=== PATIENT | female | born 1980 | race Caucasian/White ===

== ENCOUNTER 2017-12-09 21:10 | Inpatient (IN) | payer OTHER ==
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
[2017-12-09] MEDS ORDERED: ZIPRASIDONE 20 MG VIAL IM STA (23:42)
[2017-12-09] MEDS ORDERED: LORazepam 2 MG/ML INJ IM STA (23:42)
[2017-12-10] MEDS ORDERED: MAGNESIUM HYDROXIDE 2,400 MG/10 ML CUP PO PRN (00:49)
[2017-12-10] MEDS ORDERED: ZIPRASIDONE 20 MG VIAL IM PRN (00:49)
[2017-12-10] MEDS ORDERED: LORazepam 1 MG TAB PO PRN (00:49)
[2017-12-10] MEDS ORDERED: ACETAMINOPHEN TAB 325 MG TAB PO PRN (00:49)
[2017-12-10] MEDS ORDERED: MAG HYDROX/AL HYDROX/SIMETH 30 ML CUP PO PRN (00:49)
--- NOTE | 2017-12-10 06:14 | P.PN ---
Progress Note - Text Progress Note Date: 12/10/17 Attempted to see patient for H and P. Patient shook head no when asked if she could talk to the doctor, immediately fell back asleep. Still very sedated after receiving geodon and ativan last night, unable to preform meaningful exam at this time.
[2017-12-10] MEDS: NICOTINE 7MG/24HR PATCH TRANSDERM SCH (09:53)
[2017-12-10] MEDS: ARIPiprazole 10 MG TAB PO SCH ×2 (15:55→17:58)
[2017-12-10] MEDS: ESCITALOPRAM 10 MG TAB PO SCH ×2 (15:55→17:58)
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
[2017-12-11] MEDS: ARIPiprazole 10 MG TAB PO SCH (11:10)
[2017-12-11] MEDS: ESCITALOPRAM 10 MG TAB PO SCH (11:10)
[2017-12-11] MEDS: NICOTINE 7MG/24HR PATCH TRANSDERM SCH (11:13)
[2017-12-11] MEDS ORDERED: hydrOXYzine PAMOATE 25 MG CAP PO PRN (12:51)
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
[2017-12-12 06:50] VITALS: BP 116/57; PULSE 70; RESP 14; TEMP 98.2
[2017-12-12] MEDS: NICOTINE 7MG/24HR PATCH TRANSDERM SCH (09:07)
[2017-12-12] MEDS: ARIPiprazole 10 MG TAB PO SCH ×2 (09:54→10:15)
--- NOTE | 2017-12-12 12:57 | P.DS ---
Providers Date of admission: 12/10/17 00:15 Expected date of discharge: 12/12/17 Attending physician: Luis Enrique Black Consults: 12/10/17 00:49 Consult Physician Routine Consulting Provider: [facility] Consult Reason/Comments: medical management Do you want consulting provider notified?: Already Contacted Primary care physician: Stated None Hospital Course: Patient had her psychiatric evaluation done by Dr. Irving, had her physical examination and psychosocial evaluation. After psychiatric evaluation Dr. Toth put her on Abilify 10 mg daily and Lexapro 10 mg a day. Patient continued to be quite agitated hostile and try to engage in self abusive behavior by removing the electrical outlets and was placed on one-to-one supervision. I saw her for follow-up examination on 12/11/2017, her diagnosis were reviewed, revised and her Lexapro was discontinued because of her diagnosis and Abilify was continued to manage her psychosis. She settled down and was able to control her anger and frustration and her one-to-one supervision was discontinued. She continued to be cooperative, her psychotic thinking cleared up and did not show any self abusive behavior. She had a deferral appointment today and is signed her consent for treatment. In view of all these it was agreed to discharge her. Condition on discharge this is a white ambulatory female with good hygiene. She is polite and cooperative. She does not show any psychomotor agitation or retardation. Her speech is spontaneous relevant and goal-directed. Her mood is euthymic and affect is appropriate. She continues to deny hallucinations, delusional thinking, suicidal and homicidal ideas. She is well oriented with good memory concentration general knowledge etc. Her insight and judgment have improved quite a bit. 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 Cannabis use disorder severe F 12.20. Borderline personality disorder F 60.3. ALLERGY to amoxicillin and penicillins. Patient was advised and agreed to take her medications as prescribed, not to abuse drugs or alcohol, seek drug and alcohol counseling, seek DBT and learn better coping skills, not to drive or operate machinery if she feels sleepy, to call her psychiatrist or therapist if she gets any thoughts of hurting herself and if she cannot get hold of them to come to the nearest ER. It was suggested to her that she may not need to be on Abilify for more than a week and should discuss this with her outpatient psychiatrist before stopping it. Patient Condition at Discharge: Stable Plan - Discharge Summary New Discharge Prescriptions: New ARIPiprazole [Abilify] 10 mg PO DAILY 30 Days #30 tab Discharge Medication List ARIPiprazole [Abilify] 10 mg PO DAILY 30 Days #30 tab 12/12/17 [Rx] Follow up Appointment(s)/Referral(s): None,Stated [Primary Care Provider] - 1-2 days
== END 2017-12-12 14:56 | disposition home or self-care (01) | DRG 896 ==
LOC: EC 21:10 → 3MHU 12-10 00:15
PROVIDERS: ADMIT Psychiatry & Neurology Psychiatry; ATTEND Psychiatry & Neurology Psychiatry
DX: F15.921 Other stimulant use, unspecified with intoxication delirium (principal); G93.40 Encephalopathy, unspecified; F12.20 Cannabis dependence, uncomplicated; F60.3 Borderline personality disorder; F17.200 Nicotine dependence, unspecified, uncomplicated; F43.10 Post-traumatic stress disorder, unspecified; Z91.5 Personal history of self-harm; W26.0XXA Contact with knife, initial encounter; Z79.899 Other long term (current) drug therapy; Z85.41 Personal history of malignant neoplasm of cervix uteri; Z88.0 Allergy status to penicillin; Z90.710 Acquired absence of both cervix and uterus; Z90.49 Acquired absence of other specified parts of digestive tract; Z91.410 Personal history of adult physical and sexual abuse; Z81.8 Family history of other mental and behavioral disorders
CPT/HCPCS: 82075; 96372; 99285

== ENCOUNTER 2017-12-17 01:27 | Emergency (ER) | payer OTHER ==
[2017-12-17 01:35] VITALS: RESP 18; TEMP 97.1
[2017-12-17] MEDS ORDERED: CEPHALEXIN 500MG STARTER PACK 4 CAP BTL PO STA (03:05)
--- NOTE | 2017-12-17 03:07 | ED ---
General Adult HPI - General Chief complaint: Extremity Injury, Lower Stated complaint: foot infection Time Seen by Provider: 12/17/17 02:23 Source: patient Mode of arrival: ambulatory Limitations: no limitations - History of Present Illness Initial comments: 37-year-old female patient presents to the emergency department today for evaluation of left great toe swelling and pain. Patient states it is been bothering her for the last week. Patient states that she has had. Drainage from the area beneath her toe nail and along the edges of her toenail. Patient states that she does wear tight she works on her feet all day. Patient states that the nail is lifting away from the nailbed. Patient states she has had similar infections in the past. She denies any fevers or chills with this. Denies any nausea or vomiting. Denies any numbness or tingling to the foot. Patient denies any recent rash, shortness breath, chest pain, abdominal pain, nausea, vomiting, diarrhea, constipation, back pain, dizziness, weakness, hematuria, dysuria, urinary urgency, urinary frequency, headache, visual changes , or any other complaints. - Related Data Previous Rx's Medication Instructions Recorded ARIPiprazole [Abilify] 10 mg PO DAILY 30 Days #30 tab 12/12/17 Cephalexin [Keflex] 500 mg PO Q6H #28 cap 12/17/17 Ibuprofen [Motrin] 600 mg PO Q8HR PRN #30 tab 12/17/17 Allergies Allergy/AdvReac Type Severity Reaction Status Date / Time amoxicillin Allergy Unknown Verified 12/17/17 01:31 Childhood Penicillins Allergy Unknown Verified 12/17/17 01:31 Childhood Review of Systems ROS Statement: Those systems with pertinent positive or pertinent negative responses have been documented in the HPI. ROS Other: All systems not noted in ROS Statement are negative. Past Medical History Past Medical History: No Reported History Additional Past Medical History / Comment(s): cervical cancer, History of Any Multi-Drug Resistant Organisms: None Reported Past Surgical History: Cholecystectomy, Hysterectomy Additional Past Surgical History / Comment(s): bilat carpal tunnel surgery, d/c , loop procedure, Past Psychological History: Anxiety, Depression, PTSD Smoking Status: Current every day smoker Past Alcohol Use History: Occasional Past Drug Use History: None Reported - Past Family History Mother Family Medical History: Cancer (Unknown), Coronary Artery Disease (CAD), Diabetes Mellitus General Exam Limitations: no limitations General appearance: alert, in no apparent distress, other (Social well-developed , well-nourished adult female patient in no acute distress. Vital signs upon presentation her doctor 97.1F, pulse 85, respirations 18, blood pressure 135/76 , pulse ox 100% on room air.) Eye exam: Present: normal appearance, PERRL, EOMI. Absent: scleral icterus, conjunctival injection, periorbital swelling ENT exam: Present: normal exam, normal oropharynx, mucous membranes moist Respiratory exam: Present: normal lung sounds bilaterally. Absent: respiratory distress, wheezes, rales, rhonchi, stridor Cardiovascular Exam: Present: regular rate, normal rhythm, normal heart sounds. Absent: systolic murmur, diastolic murmur, rubs, gallop, clicks Extremities exam: Present: full ROM, tenderness (Tenderness around the great toe ), normal capillary refill, other (There is erythema and swelling at the proximal nail fold of the left great toe, nail is thickened and yellowed. Nail is removing away from the nailbed. There is no current drainage.). Absent: normal inspection, pedal edema, joint swelling, calf tenderness Neurological exam: Present: alert, oriented X3, CN II-XII intact Psychiatric exam: Present: normal affect, normal mood Skin exam: Present: warm, dry, intact, normal color. Absent: rash Course Vital Signs 12/17/17 12/17/17 01:31 03:33 Temperature 97.1 F L 97.1 F L Pulse Rate 85 80 Respiratory 18 18 Rate Blood Pressure 135/76 121/78 O2 Sat by Pulse 100 100 Oximetry Medical Decision Making - Medical Decision Making 37-year-old female patient presents to the emergency department today for evaluation of left great toe infection. Physical examination did reveal swelling and erythema at the proximal nail fold, there is a thickened and yellowed nail that is pulling away from the nailbed. No evidence of abscess. Patient states this is Coco draining. She is instructed to do warm soaks 3-4 times daily. She is instructed to take antibiotics and anti-inflammatory pain medication. She is instructed to follow-up with the media associate for further evaluation. Return parameters discussed in detail. She verbalizes understanding and agrees with this plan. Disposition Clinical Impression: Paronychia of great toe, left Disposition: HOME SELF-CARE Condition: Good Instructions: Paronychia (ED), Warm Compress or Soak (ED) Additional Instructions: Do warm soaks of the foot 3-4 times daily. Follow-up with media associate. Complete antibiotic prescription in full. Return here immediately for any new, worsening, or concerning symptoms. Prescriptions: Cephalexin [Keflex] 500 mg PO Q6H #28 cap Ibuprofen [Motrin] 600 mg PO Q8HR PRN #30 tab PRN Reason: Pain Is patient prescribed a controlled substance at d/c from ED?: No Referrals: None,Stated [Primary Care Provider] - 1-2 days Triston Sarabia DPM [STAFF PHYSICIAN] - 1-2 days Time of Disposition: 03:07
[2017-12-17 03:35] VITALS: BP 121/78; PULSE 80
== END 2017-12-17 03:35 | disposition home or self-care (01) ==
LOC: EC 01:27
DX: L03.032 Cellulitis of left toe (principal); F17.200 Nicotine dependence, unspecified, uncomplicated; Z88.0 Allergy status to penicillin; Z85.41 Personal history of malignant neoplasm of cervix uteri
CPT/HCPCS: 99283

== ENCOUNTER → 2018-01-12 | Outpatient (CLI) | payer OTHER | END | disposition home or self-care (01) | LOC: LABWHC1 14:06 | PROVIDERS: ATTEND Family Medicine | DX: Z13.88 Encounter for screening for disorder due to exposure to contaminants (principal) | CPT/HCPCS: 36415; 83655 ==

== ENCOUNTER 2018-01-28 15:27 | Emergency (ER) | payer OTHER ==
--- NOTE | 2018-01-28 16:47 | ED ---
General Adult HPI - General Chief complaint: Extremity Problem,Nontraumatic Stated complaint: ankle & hand swelling/back pain Time Seen by Provider: 01/28/18 16:08 Source: patient, RN notes reviewed, old records reviewed Mode of arrival: ambulatory Limitations: no limitations - History of Present Illness Initial comments: This is a 29-year-old female the ER for evaluation of upper and lower extremity edema. Patient has recent history of drug abuse, history of alcohol use history of opiate abuse. Patient started Medication which isn't injection and since then has been having some diffuse edema. No travel history no sick contacts no chest pain or shortness of breath. Patient denies any other new medications, denies drugs or alcohol - Related Data Previous Rx's Medication Instructions Recorded ARIPiprazole [Abilify] 10 mg PO DAILY 30 Days #30 tab 12/12/17 Cephalexin [Keflex] 500 mg PO Q6H #28 cap 12/17/17 Ibuprofen [Motrin] 600 mg PO Q8HR PRN #30 tab 12/17/17 Furosemide [Lasix] 40 mg PO BID #10 tablet 01/28/18 Allergies Allergy/AdvReac Type Severity Reaction Status Date / Time amoxicillin Allergy Unknown Verified 01/28/18 15:36 Childhood Penicillins Allergy Unknown Verified 01/28/18 15:36 Childhood Review of Systems ROS Statement: Those systems with pertinent positive or pertinent negative responses have been documented in the HPI. ROS Other: All systems not noted in ROS Statement are negative. Past Medical History Past Medical History: No Reported History Additional Past Medical History / Comment(s): cervical cancer, History of Any Multi-Drug Resistant Organisms: None Reported Past Surgical History: Cholecystectomy, Hysterectomy Additional Past Surgical History / Comment(s): bilat carpal tunnel surgery, d/c , loop procedure, Past Psychological History: Anxiety, Depression, PTSD Smoking Status: Current every day smoker Past Alcohol Use History: None Reported Past Drug Use History: None Reported - Past Family History Mother Family Medical History: Cancer (Unknown), Coronary Artery Disease (CAD), Diabetes Mellitus General Exam - General Exam Comments Initial Comments: Diffuse leg edema, and edema, soft tissue edema Limitations: no limitations General appearance: alert, in no apparent distress Head exam: Present: atraumatic, normocephalic, normal inspection Eye exam: Present: normal appearance, PERRL, EOMI. Absent: scleral icterus, conjunctival injection, periorbital swelling ENT exam: Present: normal exam, mucous membranes moist Neck exam: Present: normal inspection. Absent: tenderness, meningismus, lymphadenopathy Respiratory exam: Present: normal lung sounds bilaterally. Absent: respiratory distress, wheezes, rales, rhonchi, stridor Cardiovascular Exam: Present: regular rate, normal rhythm, normal heart sounds. Absent: systolic murmur, diastolic murmur, rubs, gallop, clicks GI/Abdominal exam: Present: soft, normal bowel sounds. Absent: distended, tenderness, guarding, rebound, rigid Extremities exam: Present: normal inspection, full ROM, normal capillary refill. Absent: tenderness, pedal edema, joint swelling, calf tenderness Back exam: Present: normal inspection Neurological exam: Present: alert, oriented X3, CN II-XII intact Psychiatric exam: Present: normal affect, normal mood Skin exam: Present: warm, dry, intact, normal color. Absent: rash Course Vital Signs 01/28/18 01/28/18 15:34 17:13 Temperature 98.7 F Pulse Rate 90 78 Respiratory 20 18 Rate Blood Pressure 110/67 112/77 O2 Sat by Pulse 99 98 Oximetry - Reevaluation(s) Reevaluation #1: 01/28/18 18:36 patient remains without acute distress Medical Decision Making - Medical Decision Making 37 female the ER for evaluation of bilateral lower extremity edema significant body swelling and pain. Patient CT negative labwork normal. Patient will be discharged home with a few days of Lasix. - Lab Data Result diagrams: 01/28/18 17:10 01/28/18 17:10 Lab Results 01/28/18 01/28/18 01/28/18 Range/Units 17:10 17:10 17:10 WBC 5.9 (3.8-10.6) k/uL RBC 3.75 L (3.80-5.40) m/uL Hgb 12.1 (11.4-16.0) gm/dL Hct 36.0 (34.0-46.0) % MCV 95.9 (80.0-100.0) fL MCH 32.2 (25.0-35.0) pg MCHC 33.5 (31.0-37.0) g/dL RDW 13.2 (11.5-15.5) % Plt Count 197 (150-450) k/uL Neutrophils % 61 % Lymphocytes % 29 % Monocytes % 6 % Eosinophils % 2 % Basophils % 1 % Neutrophils # 3.6 (1.3-7.7) k/uL Lymphocytes # 1.7 (1.0-4.8) k/uL Monocytes # 0.4 (0-1.0) k/uL Eosinophils # 0.1 (0-0.7) k/uL Basophils # 0.0 (0-0.2) k/uL PT (9.0-12.0) sec INR (<1.2) APTT (22.0-30.0) sec D-Dimer (<0.60) mg/L FEU Sodium 139 (137-145) mmol/L Potassium 4.2 (3.5-5.1) mmol/L Chloride 108 H (98-107) mmol/L Carbon Dioxide 25 (22-30) mmol/L Anion Gap 6 mmol/L BUN 14 (7-17) mg/dL Creatinine 0.70 (0.52-1.04) mg/dL Est GFR (CKD-EPI)AfAm >90 (>60 ml/min/1.73 sqM) Est GFR (CKD-EPI)NonAf >90 (>60 ml/min/1.73 sqM) Glucose 83 (74-99) mg/dL Calcium 8.8 (8.4-10.2) mg/dL Total Bilirubin 0.2 (0.2-1.3) mg/dL AST 39 H (14-36) U/L ALT 48 (9-52) U/L Alkaline Phosphatase 83 (38-126) U/L Total Creatine Kinase 338 H (30-135) U/L CK-MB (CK-2) 3.3 H* (0.0-2.4) ng/mL CK-MB (CK-2) Rel Index 1.0 NT-Pro-B Natriuret Pep pg/mL Total Protein 5.9 L (6.3-8.2) g/dL Albumin 3.7 (3.5-5.0) g/dL Amylase 40 (30-110) U/L Lipase 141 (23-300) U/L Urine Color Urine Appearance (Clear) Urine pH (5.0-8.0) Ur Specific [place] (1.001-1.035) Urine Protein (Negative) Urine Glucose (UA) (Negative) Urine Ketones (Negative) Urine Blood (Negative) Urine Nitrite (Negative) Urine Bilirubin (Negative) Urine Urobilinogen (<2.0) mg/dL Ur Leukocyte Esterase (Negative) Hepatitis A IgM Ab 01/28/18 01/28/18 01/28/18 Range/Units 17:10 17:10 17:10 WBC (3.8-10.6) k/uL RBC (3.80-5.40) m/uL Hgb (11.4-16.0) gm/dL Hct (34.0-46.0) % MCV (80.0-100.0) fL MCH (25.0-35.0) pg MCHC (31.0-37.0) g/dL RDW (11.5-15.5) % Plt Count (150-450) k/uL Neutrophils % % Lymphocytes % % Monocytes % % Eosinophils % % Basophils % % Neutrophils # (1.3-7.7) k/uL Lymphocytes # (1.0-4.8) k/uL Monocytes # (0-1.0) k/uL Eosinophils # (0-0.7) k/uL Basophils # (0-0.2) k/uL PT 9.5 (9.0-12.0) sec INR 1.0 (<1.2) APTT 21.8 L (22.0-30.0) sec D-Dimer 0.30 (<0.60) mg/L FEU Sodium (137-145) mmol/L Potassium (3.5-5.1) mmol/L Chloride (98-107) mmol/L Carbon Dioxide (22-30) mmol/L Anion Gap mmol/L BUN (7-17) mg/dL Creatinine (0.52-1.04) mg/dL Est GFR (CKD-EPI)AfAm (>60 ml/min/1.73 sqM) Est GFR (CKD-EPI)NonAf (>60 ml/min/1.73 sqM) Glucose (74-99) mg/dL Calcium (8.4-10.2) mg/dL Total Bilirubin (0.2-1.3) mg/dL AST (14-36) U/L ALT (9-52) U/L Alkaline Phosphatase (38-126) U/L Total Creatine Kinase (30-135) U/L CK-MB (CK-2) (0.0-2.4) ng/mL CK-MB (CK-2) Rel Index NT-Pro-B Natriuret Pep 196 pg/mL Total Protein (6.3-8.2) g/dL Albumin (3.5-5.0) g/dL Amylase (30-110) U/L Lipase (23-300) U/L Urine Color Yellow Urine Appearance Clear (Clear) Urine pH 7.0 (5.0-8.0) Ur Specific [place] 1.014 (1.001-1.035) Urine Protein Negative (Negative) Urine Glucose (UA) Negative (Negative) Urine Ketones Negative (Negative) Urine Blood Negative (Negative) Urine Nitrite Negative (Negative) Urine Bilirubin Negative (Negative) Urine Urobilinogen <2.0 (<2.0) mg/dL Ur Leukocyte Esterase Negative (Negative) Hepatitis A IgM Ab 01/28/18 Range/Units 17:16 WBC (3.8-10.6) k/uL RBC (3.80-5.40) m/uL Hgb (11.4-16.0) gm/dL Hct (34.0-46.0) % MCV (80.0-100.0) fL MCH (25.0-35.0) pg MCHC (31.0-37.0) g/dL RDW (11.5-15.5) % Plt Count (150-450) k/uL Neutrophils % % Lymphocytes % % Monocytes % % Eosinophils % % Basophils % % Neutrophils # (1.3-7.7) k/uL Lymphocytes # (1.0-4.8) k/uL Monocytes # (0-1.0) k/uL Eosinophils # (0-0.7) k/uL Basophils # (0-0.2) k/uL PT (9.0-12.0) sec INR (<1.2) APTT (22.0-30.0) sec D-Dimer (<0.60) mg/L FEU Sodium (137-145) mmol/L Potassium (3.5-5.1) mmol/L Chloride (98-107) mmol/L Carbon Dioxide (22-30) mmol/L Anion Gap mmol/L BUN (7-17) mg/dL Creatinine (0.52-1.04) mg/dL Est GFR (CKD-EPI)AfAm (>60 ml/min/1.73 sqM) Est GFR (CKD-EPI)NonAf (>60 ml/min/1.73 sqM) Glucose (74-99) mg/dL Calcium (8.4-10.2) mg/dL Total Bilirubin (0.2-1.3) mg/dL AST (14-36) U/L ALT (9-52) U/L Alkaline Phosphatase (38-126) U/L Total Creatine Kinase (30-135) U/L CK-MB (CK-2) (0.0-2.4) ng/mL CK-MB (CK-2) Rel Index NT-Pro-B Natriuret Pep pg/mL Total Protein (6.3-8.2) g/dL Albumin (3.5-5.0) g/dL Amylase (30-110) U/L Lipase (23-300) U/L Urine Color Urine Appearance (Clear) Urine pH (5.0-8.0) Ur Specific [place] (1.001-1.035) Urine Protein (Negative) Urine Glucose (UA) (Negative) Urine Ketones (Negative) Urine Blood (Negative) Urine Nitrite (Negative) Urine Bilirubin (Negative) Urine Urobilinogen (<2.0) mg/dL Ur Leukocyte Esterase (Negative) Hepatitis A IgM Ab NEGATIVE - Radiology Data Radiology results: report reviewed (CT head and pelvis negative), image reviewed Disposition Clinical Impression: Leg edema, Bilateral leg edema, Medication reaction Disposition: HOME SELF-CARE Condition: Good Instructions: Leg Edema (ED) Prescriptions: Furosemide [Lasix] 40 mg PO BID #10 tablet Is patient prescribed a controlled substance at d/c from ED?: No Referrals: [facility] [Primary Care Provider] - 1-2 days
[2018-01-28 17:14] VITALS: RESP 18
[2018-01-28 17:19] LABS: Appearance,Urine Clear (Clear); Basophils % (A) 1 %; Bilirubin,Urine Negative (Negative); Blood,Urine Negative (Negative); Color,Urine Yellow; Eosinophils # (A) 0.1 k/uL (0-0.7); Eosinophils % (A) 2 %; Glucose,Urine (UA) Negative (Negative); HGB 12.1 gm/dL (11.4-16.0); Ketones,Urine Negative (Negative); Leukocyte Esterase,Urine Negative (Negative); Lymphocytes # (A) 1.7 k/uL (1.0-4.8); Lymphocytes % (A) 29 %; MCH 32.2 pg (25.0-35.0); MCHC 33.5 g/dL (31.0-37.0); MCV 95.9 fL (80.0-100.0); Mean Platelet Volume 7.1; Monocytes # (A) 0.4 k/uL (0-1.0); Monocytes % (A) 6 %; Neutrophils # (A) 3.6 k/uL (1.3-7.7); Neutrophils % (A) 61 %; Nitrite,Urine Negative (Negative); Platelet Count 197 k/uL (150-450); Protein,Urine Negative (Negative); RBC 3.75 m/uL (3.80-5.40); RDW 13.2 % (11.5-15.5); Specific Gravity,Urine 1.014 (1.001-1.035); Urobilinogen,Urine <2.0 mg/dL (<2.0); WBC 5.9 k/uL (3.8-10.6)
[2018-01-28 17:28] LABS: ALT 48 U/L (9-52); AST 39 U/L (14-36); Albumin 3.7 g/dL (3.5-5.0); Alkaline Phosphatase 83 U/L (38-126); Amylase 40 U/L (30-110); Anion Gap 6 mmol/L; Blood Urea Nitrogen 14 mg/dL (7-17); Calcium 8.8 mg/dL (8.4-10.2); Carbon Dioxide 25 mmol/L (22-30); Chloride 108 mmol/L (98-107); Glucose 83 mg/dL (74-99); Lipase 141 U/L (23-300); Potassium 4.2 mmol/L (3.5-5.1); Sodium 139 mmol/L (137-145); Total Bilirubin 0.2 mg/dL (0.2-1.3); Total Protein 5.9 g/dL (6.3-8.2)
[2018-01-28 17:41] LABS: D-Dimer 0.3 mg/L FEU (<0.60); Prothrombin Time 9.5 sec (9.0-12.0)
[2018-01-28 17:42] LABS: Creatine Kinase MB 3.3 ng/mL (0.0-2.4)
[2018-01-28 17:46] LABS: Partial Thromboplastin Time 21.8 sec (22.0-30.0)
--- NOTE | 2018-01-28 17:53 | CT ---
EXAMINATION TYPE: CT abdomen pelvis wo con DATE OF EXAM: 01/28/2018 COMPARISON: HISTORY: Back pain CT DLP: 911 mGycm Automated exposure control for dose reduction was used. TECHNIQUE: Helical acquisition of images was performed from the lung bases through the pelvis. FINDINGS: LUNG BASES: No significant abnormality is appreciated. LIVER/GB: Postcholecystectomy changes. PANCREAS: No significant abnormality is seen. SPLEEN: No significant abnormality is seen. ADRENALS: No significant abnormality is seen. KIDNEYS: No significant abnormality is seen. No calcifications or hydronephrosis in either kidney. No calcifications inside the urinary bladder. Bowel: No free air or bowel obstruction. RETROPERITONEAL ADENOPATHY: None visualized REPRODUCTIVE ORGANS: Uterus not visualized. URINARY BLADDER: No significant abnormality is seen. PELVIC ADENOPATHY: None visualized. OSSEOUS STRUCTURES: Loss of height at the L5-S1 intervertebral disc space indicating degenerative ost eophytic changes. No compression fractures throughout the lumbar spine. BOWEL: No significant abnormality is seen. OTHER: IMPRESSION: POSTCHOLECYSTECTOMY CHANGES. NO FREE AIR OR BOWEL OBSTRUCTION. NO CALCIFICATIONS ON EITHER KIDNEY OR SIGNIFICANT HYDRONEPHROSIS. ARTHRITIC CHANGES IN THE LUMBOSACRAL JUNCTION WITH LOSS OF HEIGHT AT THE L5-S1 INTERVERTEBRAL DISC SP DEE. APPENDIX IS NOT VISIBLE. NO ABNORMAL ATTENUATION OF THE PERICECAL FAT.
[2018-01-28 18:17] LABS: Hepatitis A AB IgM Index 0.05; Hepatitis A Antibody IgM NEGATIVE
[2018-01-28] MEDS ORDERED: FUROSEMIDE 10 MG/ML 4 ML VIAL IV STA (18:34)
[2018-01-28 18:37] VITALS: TEMP 98
[2018-01-28] MEDS ORDERED: HYDROCORTISONE 1% CREAM 30 GM TUBE TOPICAL PRN (18:42)
[2018-01-28 19:23] VITALS: BP 132/78; PULSE 74
[2018-01-29 11:59] LABS: Hepatitis B Core IgM Non-Reactive (Non-Reactive)
== END 2018-01-28 19:21 | disposition home or self-care (01) ==
LOC: EC 15:27
DX: R60.0 Localized edema (principal); T50.905A Adverse effect of unspecified drugs, medicaments and biological substances, initial encounter; F17.200 Nicotine dependence, unspecified, uncomplicated; Z98.890 Other specified postprocedural states; Z90.49 Acquired absence of other specified parts of digestive tract; Z90.710 Acquired absence of both cervix and uterus; Z85.41 Personal history of malignant neoplasm of cervix uteri; Z88.0 Allergy status to penicillin
CPT/HCPCS: 36415; 85379; 83880; 80053; 80074; 82150; 82550; 82553; 83690; 85025; 85610; 85730; 81003; 87086; 74176; 99284; 96374; J1940